=== PATIENT | female | born 1995 | race Caucasian/White ===

== ENCOUNTER → 2019-08-31 14:38 | Outpatient (CLI) | payer OTHER, SELFPAY ==
[2019-08-31 17:04] LABS: GTT (PREG) 1 Hour PP 50gm Dose 116 mg/dL (76-139)
[2019-08-31 17:40] LABS: Hematocrit 34.1 % (36-46); Hemoglobin 11.8 g/dL (12.0-16.0)
== END ==
PROVIDERS: PCP Family Medicine; Referring Provider Family Medicine; Visit Provider Family Medicine
DX: Z34.02 Encounter for supervision of normal first pregnancy, second trimester (principal); Z3A.27 27 weeks gestation of pregnancy
CPT/HCPCS: 36415; 82950; 85014; 85018

== ENCOUNTER → 2019-10-28 11:07 | Outpatient (CLI) | payer OTHER, SELFPAY ==
[2019-10-29 21:43] LABS: Strep Grp B PCR NEG for Grp B Strep
== END ==
PROVIDERS: PCP Family Medicine; Visit Provider Family Medicine
DX: Z34.03 Encounter for supervision of normal first pregnancy, third trimester (principal); Z3A.36 36 weeks gestation of pregnancy
CPT/HCPCS: 87653

== ENCOUNTER → 2019-11-28 14:03 | Outpatient (CLI) | payer OTHER, SELFPAY ==
[2019-11-30 11:34] LABS: COVID19 Sendout Not Detected (Not Detect)
== END ==
PROVIDERS: PCP Family Medicine; Visit Provider Nurse Practitioner
DX: Z11.59 Encounter for screening for other viral diseases (principal)
CPT/HCPCS: 87635

== ENCOUNTER 2019-11-30 19:07 | Inpatient (IN) | payer OTHER, SELFPAY ==
[2019-11-30] MEDS: miSOPROStoL 25 MCG TABLET VAG (21:30)
[2019-12-01 01:01] LABS: Add Manual Diff / Slide Review NO; Basophils Absolute Auto 0 /uL (0-100); Basophils Percent Auto 0.2 % (0-2); Eosinophils Absolute Auto 0 /uL (0-450); Eosinophils Percent Auto 0.4 % (2-4); Hematocrit 32.3 % (36-46); Hemoglobin 10.6 g/dL (12.0-16.0); Lymphocytes Absolute Auto 2100 /uL (1100-4500); Lymphocytes Percent Auto 23.7 % (25-40); Mean Corpuscular HGB Conc 32.7 % (30-36); Mean Corpuscular Hemoglobin 27.6 PG (26-34); Mean Corpuscular Volume 84.3 fL (80-100); Monocytes Absolute Auto 700 /uL (0-900); Monocytes Percent Auto 7.9 % (3-14); Neutrophils Absolute Auto 6000 /uL (1500-7000); Neutrophils Percent Auto 67.8 % (50-75); Platelet Count 270 X10^3/uL (150-400); Red Blood Cell Count 3.83 X10^6/uL (4.0-5.2); Red Cell Distribution Width 14.9 % (11.6-14.8); White Blood Cell Count 8.9 X10^3/uL (4.5-11.0)
--- NOTE | 2019-12-01 07:30 | P.HPOB_ITS ---
OB HPI History of Present Condition Chief complaint: : 1 Para: 0 Estimated Date of Delivery: 11/25/19 Estimated Gestational Age (weeks): 40 6/7 Narrative: Clotilde Martines is a 24 year old female G1 para 0 at 40 weeks and 6 7 days consistent with early ultrasound and 20 week ultrasound with an estimated due date of November 25, 2019. she comes in for induction of labor due to postdates. She has been feeling well over the last week with no headache blurry vision fevers or chills nausea vomiting she has had good baby movement. She has had no loss of fluid or leakage. She has had some intermittent and sporadic contractions. She came in last night received 1 dose of Cytotec. Had intermittent contractions throughout the evening which became more moderate in the morning. She says she did sleep through some of those contractions. As far as care she was a transfer of care from the [facility] at 27 weeks. care complicated by depression was stopped early in June and doing well. She has varicella nonimmune she is expecting avoid. Patient's initial weight was 170 weight gain on the total was 45 lb. She had routine care and follow-up. Indications Indication for induction OB: post dates History of Present care: good care Dating criteria: based on 1st trimester US only Ultrasounds: normal 1st trimester US Obstetrical complications: none Medical complications: none Preadmission Labs Blood type: O (+) positive -: Antibody screen: negative, GBS status: negative, HBsAG: negative, HIV: negative and RPR/VDLR: negative -: Chlamydia screen: not detected and Gonorrhea screen: not detected -: Rubella: immune and Varicella: not immune PAP: Normal Quad screen: Normal 1 hr GTT: 116 Evaluation Evaluation Laboratory results: Laboratory Tests 12/01/19 12/01/19 00:25 00:25 WBC 8.9 RBC 3.83 L Hgb 10.6 L Hct 32.3 L MCV 84.3 MCH 27.6 MCHC 32.7 RDW 14.9 H Plt Count 270 Neut % (Auto) 67.8 Lymph % (Auto) 23.7 L [place] % (Auto) 7.9 Eos % (Auto) 0.4 L Baso % (Auto) 0.2 Neut # (Auto) 6000 Lymph # (Auto) 2100 [place] # (Auto) 700 Eos # (Auto) 0 Baso # (Auto) 0 Blood Type O Positive Antibody Screen Negative [facility] Medical History Anxiety (Acute ~2018) Arm fracture, left (Acute) Cervicalgia (Acute) Depression (Acute ~2018) Kyphosis of thoracic region (Acute) Segmental dysfunction of cervical region (Acute) Somatic dysfunction of costovertebral joint structure (Acute) Stress (Acute) Tinnitus (Chronic ~2017) Surgical History Anesthesia (Resolved) H/O wisdom tooth extraction (Acute ~2012) Hx of tonsillectomy (Acute ~2003) Family History Mother Diabetes mellitus Father Alcohol abuse Grandfather Diabetes mellitus Irregular heart rhythm Hypertension Grandmother Breast cancer Dementia Lymphedema Grandfather No problems noted. Grandmother Alzheimer disease Sister Asthma Multiple allergies Social History marital status: household members: spouse pets and animals: No education level: college (some College) occupational status: employed and unemployed current occupational exposures/hazards: No Previous occupational history: X 4 years : out in May 2019 maritza/rastafari: [employer] special maritza needs: No Smoking Status: Never smoker second hand exposure: No alcohol intake: former (pre- : social) substance use type: does not use Meds Home Medications and Allergies Home Medications Medication Instructions Recorded Confirmed Type docosahexaenoic acid 200 mg capsule mg PO 08/27/19 11/18/19 History loratadine 10 mg tablet 10 mg PO .PRN tab 08/27/19 11/18/19 History prenat.vits,marce,xvu-bhdk-bcabx 1 tab PO DAILY 08/27/19 11/18/19 History breast pump #1 each 09/21/19 11/18/19 Rx Allergies Allergy/AdvReac Type Severity Reaction Status Date / Time No Known Drug Allergies Allergy Verified 11/28/19 14:02 Exam Vital Signs (past 8 hours): . General: Alert no apparent distress. Affect is appropriate. Alex it is uncomfortable. HEENT: Neck is supple without lymphadenopathy pupils equal round and reactive. Cardio: S1-S2 regular rate and rhythm. Respiratory: Lungs clear to auscultation. Abdomen: Gravid. Extremities: Normal deep tendon reflexes trace edema. [place]: Every 5-7 minutes mild in intensity heart tones: Category 1 Objective Labs Result Diagrams: 12/01/19 00:25 Labs: Laboratory Results - last 24 hr 12/01/19 12/01/19 00:25 00:25 WBC 8.9 RBC 3.83 L Hgb 10.6 L Hct 32.3 L MCV 84.3 MCH 27.6 MCHC 32.7 RDW 14.9 H Plt Count 270 Neut % (Auto) 67.8 Lymph % (Auto) 23.7 L [place] % (Auto) 7.9 Eos % (Auto) 0.4 L Baso % (Auto) 0.2 Neut # (Auto) 6000 Lymph # (Auto) 2100 [place] # (Auto) 700 Eos # (Auto) 0 Baso # (Auto) 0 Blood Type O Positive Antibody Screen Negative Assessment and Plan Assessment and Plan Assessment and Plan narrative: 24-year-old female G1 para 0 at 40 weeks gestational age and 6 7 days for induction of labor consents were obtained. Induction was reviewed with patient. Received 1 dose of Cytotec last night. Cervix is favorable for Pitocin this morning. Estimate baby size 7-1/2 lb. GBS status is negative. care labs were reviewed. Informed consent was reviewed with patient. Labor and delivery care was discussed with the patient in all questions were answered. Ongoing induction. Start Pitocin.
[2019-12-01] MEDS: LACTATED RINGERS 1,000 ML 100 ML IV ×4 (07:58→21:07)
[2019-12-01] MEDS: OXYTOCIN PREMIX 30 UNIT/500 ML PLAST..BAG IV (07:59)
[2019-12-01 08:14] VITALS: BP 103/64
--- NOTE | 2019-12-01 10:37 | PM.OBPNLAB ---
Date/Time Date Patient Seen: 12/01/19 Time Patient Seen: 10:37 Pain Control Pain control: tolerating well Pelvic Exam Dilation (cm): 1 Effacement (%): 80 station: -3 Amniotic membrane status: Intact Contractions Contractions on admission: regular Monitor mode: External Pitocin rate (mU/min): 9 Contraction frequency (min): 4 Contraction duration (min): 1 Contraction pattern: Irregular Contraction intensity: Moderate Status status: Category l Heart Rate Baseline: 130 Monitor Accelerations: Absent Monitor Decelerations: Absent Monitor Variability: Moderate Assessment and Plan Assessment: induction ongoing Plan: continuous present management
--- NOTE | 2019-12-01 14:00 | PM.OBPNLAB ---
Date/Time Date Patient Seen: 12/01/19 Time Patient Seen: 13:00 Pain Control Pain control: tolerating well Pelvic Exam Dilation (cm): 3 Effacement (%): 90 station: -2 Amniotic membrane status: Bulging Contractions Monitor mode: External Contraction frequency (min): 4 Contraction duration (min): 1 Contraction pattern: Irregular Contraction intensity: Moderate Status status: Category l Assessment and Plan Assessment: induction ongoing Plan: continuous present management Comments: epidural requested by patient. amniotmy after. discussed with patient
--- NOTE | 2019-12-01 18:10 | PM.OBPNLAB ---
Date/Time Date Patient Seen: 12/01/19 Time Patient Seen: 15:51 Pelvic Exam Dilation (cm): 4 Effacement (%): 90 station: -2 Amniotic membrane status: Leaking Contractions Monitor mode: External Pitocin rate (mU/min): 0 Contraction frequency (min): 4 Contraction pattern: Regular Contraction intensity: Moderate Status status: Category ll Monitor Accelerations: Present Monitor Decelerations: Episodic Monitor Variability: Moderate Assessment and Plan Assessment: induction ongoing Comments: Patient had amniotomy of clear fluid. Patient had a deceleration afterwards. Patient's Pitocin was stopped. IV fluid bolus was given oxygen was given position changes. Baby's heart rate came back up I did very well afterwards. Monitors were adjusted. To get better heart rate.
--- NOTE | 2019-12-01 18:11 | P.PNOB_ITS ---
Date/Time Date Patient Seen: 12/01/19 Time Patient Seen: 18:11 Pain Control Pain control: tolerating well and epidural Pelvic Exam Dilation (cm): 5 Effacement (%): 90 station: -2 Amniotic membrane status: Intact Contractions Monitor mode: Internal Pitocin rate (mU/min): 2 Contraction frequency (min): 4 Contraction pattern: Regular Contraction intensity: Strong/Firm Status status: Category ll Heart Rate Baseline: 110 Monitor Accelerations: Present Monitor Decelerations: Episodic Assessment and Plan Assessment: active labor Comments: Difficult to chart picker baby on external monitor. scalp monitor was placed after discussion with parent about placement of scalp monitor intrauterine pressure catheter was also placed for better monitoring. Some decelerations happened during this process. Mom did not tolerate laying on left side. Right axis side position much better. Pitocin at 3 mu.
--- NOTE | 2019-12-01 20:49 | PM.OBPNLAB ---
Pelvic Exam Dilation (cm): 5 Effacement (%): 90 station: -2 Amniotic membrane status: Intact Contractions Monitor mode: Internal Contraction frequency (min): 4 Contraction pattern: Regular Contraction intensity: Strong/Firm Status status: Category ll
--- NOTE | 2019-12-01 20:50 | PM.OBPNLAB ---
Date/Time Date Patient Seen: 12/01/19 Time Patient Seen: 20:50 Pain Control Pain control: tolerating well and epidural Pelvic Exam Dilation (cm): 5 Effacement (%): 90 station: -2 Amniotic membrane status: Ruptured Contractions Contractions on admission: none Monitor mode: Internal Contraction frequency (min): 4 Contraction pattern: Regular Contraction intensity: Strong/Firm Status status: Category l Assessment and Plan Assessment: active labor Plan: Comments: Patient reexamined. heart tones have been good as long as in right side position. heart tones become a little crummy you back inside on the left. Patient's labor has continued to have slow progression. She still at 5 cm. It has been 4-5 cm over the last 3-4 hours. Had discussion about that earlier with her about concerns of lack of progression and core heart tones category 2 tracing at times. Due to patient's continued lack of progression. Discussed with her about operative delivery is . Reviewed risks benefits and common complications of . Including bleeding infection injury to and wrist a bladder or bowel and other internal organs. Patient was consented for the operative procedure all questions were answered.
[2019-12-01] MEDS: CEFAZOLIN 2 GM/100 ML FROZ.PIGGY IV (21:15)
--- NOTE | 2019-12-01 21:41 | SUR.OPER ---
Supine on Padded OR bed, head on pillow, safety belt at thigh, arms secured on padded arm boards at <90 degrees abduction. Bump under right buttock. Legs uncrossed with pillow under knees, gel pad to heels, tape over blanket to lower legs.
--- NOTE | 2019-12-01 21:55 | SUR.OPER ---
viable baby boy born at 2145, placenta delivered at 2147, cord blood and placenta given to the OB RN, 11/24
[2019-12-01 22:41] VITALS: BP 142/81; PULSE 79; RESP 20; TEMP 37; O2SAT 97
--- NOTE | 2019-12-01 22:43 | PM.PROC.1 ---
Procedures Date/Time Date of procedure: 12/01/19 Time of procedure: 22:43 General Procedure description: Procedure: Lower segment transverse section Consent: Verbal and written informed consent were obtained from the patient placed on the chart. Indications: 24-year-old G1 para 0 at 40 and 6 7th weeks gestational age failure to progress and direct 0 P position Findings: Normal uterus normal ovaries Normal male Apgars 9 and 9 direct OPP Anesthesia: Epidural Surgeon: Dr. Jose Angel Moon Food Safety Director: Dr. Leni dubois Estimated blood loss: 600 mL Drains: Rodriguez to gravity. IV fluids: 1 L crystalloid Description of procedure: The patient was brought to the operating room after her spinal epidural, preparation, and Rodriguez had been performed. The abdomen was prepped and draped in tested for for analgesia. When it was found to be adequate, a lower abdominal Pfannenstiel incision was made with first with a knife and cared down to the fascia with a second knife. The fascia was incised in the midline and extended laterally with a knife. Bleeding points were clamped with hemostats and Bovie coagulated. The rectus muscles were by blunt dissection. The rectus muscles were divided in the midline and the peritoneum was grasped with hemostats and carefully entered with Mera scissors. The incision was extended bilaterally. The bladder blade was then placed. The vesicoperitoneum was grasped with smooth pickups, entered with Metzenbaum scissors, and extended laterally. The bladder flap was created by gently blunt dissection and placed behind the bladder blade. The lower uterine segment was noted to be thin was carefully incised with the scalpel and extended laterally with the fingers. A live was found to be in the direct OP position. The head was then easily elevated with the hand. The baby was then suctioned and cried immediately, and was handed to the waiting attendant. The placenta was delivered manually. The uterus was explored with a wet lap sponge and found to be clear membranes. The first layer of the uterine closure was with running locking #1 chromic catgut suture. The second layer with an imbricating #1 chromic catgut suture. Hemostasis was carefully checked and found to be satisfactory. The bladder flap was closed with a running 2-0 chromic catgut suture. The fallopian tubes and ovaries were inspected and to be found normal bilaterally. After sponge and needle counts were found to be correct the peritoneum was closed with 2-0 chromic catgut suture. Rectus muscles were approximated in the lower midline. The fascia was closed with a 2 running 0 Vicryl from lateral to midline. The subcutaneous tissue was approximated with interrupted 2.0 plain gut. Bleeding points were Bovie and coagulated. The subcutaneous tissue was approximated with 20 plain gut suture. The skin was closed with 1-0 running subcuticular stitch. Urinary output was adequate and normal patient left to the recovery room in good condition.
[2019-12-01 22:46] VITALS: BP 142/81; PULSE 87; RESP 20; O2SAT 98
[2019-12-01 22:51] VITALS: BP 135/85; PULSE 85; RESP 13; O2SAT 98
[2019-12-01 22:56] VITALS: BP 121/74; PULSE 81; RESP 17; O2SAT 97
[2019-12-02] MEDS: KETOROLAC 30 MG/ML VIAL IV ×3 (04:34→17:42)
[2019-12-02 06:47] LABS: Add Manual Diff / Slide Review NO; Basophils Absolute Auto 100 /uL (0-100); Basophils Percent Auto 0.8 % (0-2); Eosinophils Absolute Auto 0 /uL (0-450); Eosinophils Percent Auto 0.1 % (2-4); Hematocrit 26.8 % (36-46); Hemoglobin 8.9 g/dL (12.0-16.0); Lymphocytes Absolute Auto 2200 /uL (1100-4500); Lymphocytes Percent Auto 16.2 % (25-40); Mean Corpuscular HGB Conc 33.4 % (30-36); Mean Corpuscular Hemoglobin 27.9 PG (26-34); Mean Corpuscular Volume 83.6 fL (80-100); Monocytes Absolute Auto 700 /uL (0-900); Neutrophils Absolute Auto 10600 /uL (1500-7000); Neutrophils Percent Auto 77.9 % (50-75); Platelet Count 240 X10^3/uL (150-400); Red Cell Distribution Width 15.3 % (11.6-14.8); White Blood Cell Count 13.6 X10^3/uL (4.5-11.0)
[2019-12-02] MEDS: LACTATED RINGERS 1,000 ML 100 ML IV (07:30)
--- NOTE | 2019-12-02 08:11 | PM.PN.1 ---
Subjective Subjective Date Patient Seen: 12/02/19 Time Patient Seen: 08:11 Interval history: Postoperative day 1 status post . Patient had a good night last night she says it was short. She says breast-feeding went well. Some mild incisional pain but otherwise feeling well. She says she is enjoying not having contractions and feels better. Patient still has Rodriguez catheter and SCDs on. Patient received Toradol last night for pain. She had a little bit to eat. She is hungry this morning. Says she is passing gas without difficulty. From nursing bleedings as anticipated vital signs have been stable. Exam Vital Signs (past 8 hours): Oxygen Delivery Method Room Air Narrative Exam Narrative: General: Alert no apparent distress. Affect is appropriate. Alex it is uncomfortable. HEENT: Neck is supple without lymphadenopathy pupils equal round and reactive. Cardio: S1-S2 regular rate and rhythm. Respiratory: Lungs clear to auscultation. Abdomen: Uterus firm. Incision clean dry and intact. Extremities: Normal deep tendon reflexes trace edema. Objective Labs Result Diagrams: 12/02/19 06:30 Labs: Laboratory Results - last 24 hr 12/02/19 06:30 WBC 13.6 H D RBC 3.20 L Hgb 8.9 L Hct 26.8 L MCV 83.6 MCH 27.9 MCHC 33.4 RDW 15.3 H Plt Count 240 Neut % (Auto) 77.9 H Lymph % (Auto) 16.2 L [place] % (Auto) 5.0 Eos % (Auto) 0.1 L Baso % (Auto) 0.8 Neut # (Auto) 74609 H Lymph # (Auto) 2200 [place] # (Auto) 700 Eos # (Auto) 0 Baso # (Auto) 100 Assessment & Plan Assessment & Plan narrative: day 1. Status post . Patient doing well. Plan remove Rodriguez catheter DC SCDs Ambulate Transition to oral pain medication Diet as tolerated Hemoglobin hematocrit stable as anticipated bleeding well controlled. Incision is intact and looks well.
[2019-12-02] MEDS: PRENATAL VIT,CALC/IRON/FOLIC 1 TABLET 1 TAB PO (09:20)
[2019-12-02 16:00] VITALS: BP 112/74; PULSE 69; RESP 16; TEMP 37.5
[2019-12-02] MEDS: ACETAMINOPHEN 325 MG TABLET 650 MG PO (20:47)
[2019-12-03] MEDS: IBUPROFEN 600 MG TABLET PO ×2 (01:23→07:18)
[2019-12-03] MEDS: ACETAMINOPHEN 325 MG TABLET 650 MG PO ×2 (05:00→10:59)
[2019-12-03] MEDS: DOCUSATE 250 MG CAPSULE PO (07:18)
--- NOTE | 2019-12-03 08:29 | PM.OBDS.1 ---
Discharge Providers Provider Date of admission: 11/30/19 19:07 Discharge Date: 12/03/19 Primary care physician: Jose Angel Moon MD Consults: 12/01/19 22:49 Consult to [place] [facility] Routine Comment: Discharge provider: Jose Angel Moon MD Summary Time Spent with Patient Time attestation: Total time spent providing and/or coordinating discharge services: Time spent: Less than 30 minutes Objective Labs Result Diagrams: 12/02/19 06:30 Exam Vital Signs (past 8 hours): Oxygen Delivery Method Room Air Narrative Exam Narrative: General: Alert no apparent distress. Affect is appropriate. Alex it is uncomfortable. HEENT: Neck is supple without lymphadenopathy pupils equal round and reactive. Cardio: S1-S2 regular rate and rhythm. Respiratory: Lungs clear to auscultation. Abdomen: Uterus firm. Incision clean dry and intact. Extremities: Normal deep tendon reflexes trace edema. Discharge Plan Discharge Plan Patient Disposition: Home Discharge orders & Medications Prescriptions: New hydrocodone-acetaminophen 5-325 mg Tablet 2 tab PO Q4HR PRN (Reason: Pain, Severe (7-10)) Qty: 30 RF: 0 ibuprofen 600 mg Tablet 600 mg PO Q6HR PRN (Reason: Fever/Mild Pain (1-3)) Qty: 20 RF: 0 docusate sodium 250 mg Capsule 250 mg PO DAILY Qty: 20 RF: 0 Prenatabs Rx 29 mg iron- 1 mg Tablet 1 tab PO DAILY Qty: 90 RF: 0 Continued (DME) breast pump Device See Rx Instructions .ROUTE .MEDSUPPLY Qty: 1 RF: 0 prenat.vits,marce,tum-yicy-hhmhj Tablet 1 tab PO DAILY RF: 0 Algal [employer]-3 DHA 200 mg capsule PO RF: 0 loratadine [Claritin] 10 mg tablet 10 mg PO .PRN RF: 0 Follow up/Referrals: Jose Angel Moon MD [Primary Care Provider] - Discharge Health Status Multidrug resistant organism: No MDRO Diet/Activity/Treatments Diet: Diet as Tolerated Activity: As tolerated Skin/Wound/Dressing Care Report to your healthcare provider any signs of infection, such as:: chills, fever, night sweats, increased pain, unusual drainage and unusual redness Dressing: Keep in place until follow-up visit in 7 days Visit Report/Discharge Packet Visit Report Forms: Patient Portal/API, Stroke Signs & Symptoms Discharge Data Primary Care Provider: Jose Angel Moon
== END 2019-12-03 11:32 | disposition home or self-care (01) | DRG 788 ==
PROVIDERS: Family Medicine; Admitting Provider Family Medicine; PCP Family Medicine; Referring Provider Family Medicine; Visit Provider Family Medicine
PROC: (CPT 59514; principal; 2019-12-01 20:30)
DX: O48.0 Post-term pregnancy (principal); Z3A.40 40 weeks gestation of pregnancy; Z37.0 Single live birth; O61.0 Failed medical induction of labor
CPT/HCPCS: 01967; 01968; 36415; 59050; 59200; 59514; 59515; 85025; 86850; 86900; 86901; G0379; J0690; J1885; J2274; J2405; J2590; J2704; J3010